=== PATIENT | male | born 1995 | race Caucasian/White ===

== ENCOUNTER 2016-12-19 23:30 | Emergency (ER) | payer OTHER ==
[~2016-12-19] VITALS: Ht 175.3 cm; Wt 61.6 kg
[~2016-12-19 23:30] MED LIST: ATARAX,VISTARIL25 MG PO; CLONIDINE HCL0.1 MG PO; COLACE100 MG PO; DILAUDID2 MG PO; EFFEXOR75 MG PO; FLEXERIL10 MG PO; FLOMAX0.4 MG PO; MOTRIN800 MG PO; PERCOCET 5/31 TABLET PO; PROCTOFOAM-HC10 GM PR; TESSALON PERLE100 MG PO; TRAZODONE HCL50 MG PO; ULTRAM50 MG PO; ZOFRAN ODT4 MG PO; ZOFRAN4 MG PO
[2016-12-20 00:47] LABS: INFLUENZA A VIRAL ANTIGEN NEGATIVE; INFLUENZA B VIRAL ANTIGEN NEGATIVE
[2016-12-20] MEDS ORDERED: ROBITUSSIN AC,T10 ML PO (01:02)
[2016-12-20] MEDS ORDERED: ZITHROMAX Z-PA250 MG PO (01:02)
[2016-12-20 01:44] VITALS: BP 109/59
== END 2016-12-20 01:45 | disposition home or self-care (01) ==
LOC: RME 23:30 → EME 23:30 → RME 12-20 01:45
DX: J18.9 Pneumonia, unspecified organism (principal); F17.200 Nicotine dependence, unspecified, uncomplicated
CPT/HCPCS: 71020; 87502; 99281; 99284

== ENCOUNTER 2017-10-19 18:35 | Emergency (ER) | payer OTHER ==
[~2017-10-19] VITALS: Ht 175.3 cm; Wt 69.4 kg
[~2017-10-19 18:35] MED LIST changes: +ROBITUSSIN AC,T10 ML PO; +ZITHROMAX Z-PA250 MG PO
[2017-10-19 18:56] LABS: APPEARANCE CLEAR ((CLEAR)); BILIRUBIN NEGATIVE; BLOOD NEGATIVE; COLOR YELLOW ((YELLOW)); GLUCOSE (STRIP) NEGATIVE; KETONES NEGATIVE; LEUKOCYTES NEGATIVE; NITRITE NEGATIVE; PROTEIN (STRIP) 30; SPECIFIC GRAVITY 1.023 (1.000-1.030); UROBILINOGEN 0.2 MG/DL (0.2-1.0)
[2017-10-19 19:13] LABS: HEMATOCRIT 42.3 % (38.0-50.0); HEMOGLOBIN 14.4 G/DL (12.5-16.6); MCV 91.2 FL (86-99); PLATELET COUNT 291 K/uL (156-360); RBC DIS.WIDTH-CV 13.3 % (11.8-14.6); RBC DIS.WIDTH-SD 44.5 % (39-53); RED BLOOD COUNT 4.64 M/uL (4.00-5.50); WHITE BLOOD COUNT 14.5 K/uL (4.1-10.2)
[2017-10-19 19:31] LABS: CHLORIDE 103 mEq/L (99-109); POTASSIUM 4.1 mEq/L (3.7-5.4); SODIUM 138 mEq/L (136-147)
[2017-10-19 19:32] LABS: GLUCOSE 101 mg/dL (70-99)
[2017-10-19 19:36] LABS: CREATININE 0.9 mg/dL (0.6-1.3); GFR ESTIMATE (CALCULATED) > 59 mL/min/ (58.99-99999)
[2017-10-19 19:37] LABS: UREA NITROGEN (BUN) 11 mg/dL (9-23)
[2017-10-19] MEDS ORDERED: ZOFRAN ODT8 MG PO (22:11)
[2017-10-19] MEDS ORDERED: NORCO 5/3251 TABLET PO (22:11)
[2017-10-19 22:26] VITALS: BP 117/89
== END 2017-10-19 22:26 | disposition home or self-care (01) ==
LOC: EME 18:35
PROVIDERS: Physician Assistant
DX: N23 Unspecified renal colic (principal); Z87.442 Personal history of urinary calculi; F17.200 Nicotine dependence, unspecified, uncomplicated
CPT/HCPCS: 74018; 76770; 80048; 81003; 85027; 99281; 99285; J1885; J2405; J7030